=== PATIENT | female | born 1990 | race Caucasian/White ===

== ENCOUNTER 2018-06-16 06:48 | Inpatient (IN) | payer OTHER ==
[2018-06-16] MEDS ORDERED: morphine SULFATE/Preservative Free 0.5 MG/ML (1cc Syringe) ONE (07:34)
[2018-06-16] MEDS ORDERED: ELECTROLYTE-148 SOLN 500 ML IV ONE (07:38)
[2018-06-16] MEDS ORDERED: CITRIC ACID/SODIUM CITRATE 30 ML UNIT-DOSE CUP PO ONE (07:38)
--- NOTE | 2018-06-16 07:46 | HP ---
Past Medical History - Admission Chief Complaint: Labor pain History of Present Illness: 27 yo , @ 38 weeks gestation presents to L&D c/o labor pain. Upon admission she was found to be 5cm dilated with linda breech presentation. Decision made for stat . History Source: Patient Limitations to Obtaining History: No Limitations - Past Medical History ...: 1 ...Para: 0 ...EDC by Sono: 06/29/19 - Past Surgical History Past Surgical History: Yes: None Hx Myomectomy: No Hx Transabdominal Cerclage: No - Alcohol/Substance Use Hx Alcohol Use: No History of Substance Use: reports: None - Social History History of Recent Travel: No Home Medications - Allergies Allergies/Adverse Reactions: Allergies Allergy/AdvReac Type Severity Reaction Status Date / Time No Known Allergies Allergy Verified 06/16/18 07:37 - Home Medications Home Medications: Ambulatory Orders Prenat 115/Iron Fum/Folic/Dss [ 19 Tablet] 1 each PO DAILY 06/16/18 Review of Systems - Review of Systems Constitutional: reports: No Symptoms Eyes: reports: No Symptoms HENT: reports: No Symptoms Neck: reports: No Symptoms Cardiovascular: reports: No Symptoms Respiratory: reports: No Symptoms Gastrointestinal: reports: No Symptoms Genitourinary: reports: Pain Breasts: reports: No Symptoms Reported Musculoskeletal: reports: No Symptoms Integumentary: reports: No Symptoms Neurological: reports: No Symptoms Endocrine: reports: No Symptoms Hematology/Lymphatic: reports: No Symptoms Psychiatric: reports: No Symptoms Pain Intensity: 6 Physical Exam - Maternity Constitutional: Yes: Well Nourished Eyes: Yes: Conjunctiva Clear HENT: Yes: Atraumatic Neck: Yes: Supple Cardiovascular: Yes: Regular Rate and Rhythm Lungs: Clear to auscultation - Abdominal Exam/OB Number of Fetuses: Single Presentation: Vertex - Vaginal Exam/OB Dilatation (cm): 5 Effacement (%): 90 Amniotic Membrane Status: Intact Station: -1 - Physical Exam ...Motor Strength: WNL Psychiatric: Yes: Alert, Oriented Problem List - Problems (1) Breech presentation Code(s): O32.1XX0 - MATERNAL CARE FOR BREECH PRESENTATION, UNSP Qualifiers: Fetus number: single or unspecified fetus Qualified Code(s): O32.1XX0 - Maternal care for breech presentation, not applicable or unspecified (2) 38 weeks gestation of Code(s): Z3A.38 - 38 WEEKS GESTATION OF Assessment/Plan 38 weeks gestation Breech presentation Pre op for primary Consent signed Anesthesia to see patient
[2018-06-16 07:51] VITALS: BMI 27.8
[2018-06-16 07:51] LABS: BASO % 0.3 % (0-2.0); EOS % 1.2 % (0-4.5); HEMATOCRIT 39.9 % (32.4-45.2); LYMPH % 16.1 % (8-40); MCH 34.1 pg (25.7-33.7); MCHC 35.1 g/dl (32.0-36.0); MEAN PLT VOLUME 7.7 fl (7.5-11.1); MONO % 7.4 % (3.8-10.2); PLATELET COUNT 211 K/MM3 (134-434); RBC 4.11 M/mm3 (3.60-5.2); RDW 14.5 % (11.6-15.6); WHITE BLOOD COUNT 7.7 K/mm3 (4.0-10.0)
[2018-06-16] MEDS ORDERED: OXYTOCIN 20 UNITS in 0.9% NS 20 UNIT/1,000 ML INFUS.BAG IV ONE ×2 (08:07→10:11)
[2018-06-16 08:13] LABS: ANION GAP 8 MMOL/L (8-16); BLOOD UREA NITROGEN 13 mg/dL (7-18); CALCIUM 8.7 mg/dL (8.5-10.1); CHLORIDE 107 mmol/L (98-107); CO2 23 mmol/L (21-32); CREATININE 0.4 mg/dL (0.55-1.3); GLUCOSE,RANDOM 72 mg/dL (74-106); POTASSIUM 3.9 mmol/L (3.5-5.1); SODIUM 138 mmol/L (136-145)
[2018-06-16 08:20] LABS: COCAINE, UR NEGATIVE ng/ml (CUTOFF=300); METHADONE, UR NEGATIVE ng/ml (CUTOFF=300); OPIATES, URI NEGATIVE ng/ml (CUTOFF=300); PHENCYCLIDINE,URINE NEGATIVE ng/ml (CUTOFF=25); URINE AMPHETAMINES NEGATIVE ng/ml (CUTOFF=500); URINE BARBITURATES NEGATIVE ng/ml (CUTOFF=200); URINE BENZODIAZEPINES NEGATIVE ng/ml (CUTOFF=200)
[2018-06-16 09:20] LABS: INR 0.92 (0.83-1.09); PROTHROMBIN TIME (PATIENT) 10.9 SEC (9.7-13.0)
[2018-06-16] MEDS ORDERED: METHYLERGONOVINE MALEATE 0.2 MG/1 ML AMP IM PRN (09:32)
--- NOTE | 2018-06-16 09:35 | OP ---
Operative Note - Note: Operative Date: 06/16/18 Pre-Operative Diagnosis: 38 weeks gestation / Breech presentation Operation: Primary Low Transverse Findings: Baby boy in breech position Surgeon: Kenya Martinez Aviation Technician: Gisela Haynes Anesthesia: Spinal Specimens Removed: Placenta Estimated Blood Loss (mls): 600 Operative Report Dictated: Yes
[2018-06-16] MEDS: OXYTOCIN 20 UNITS in 0.9% NS 20 UNIT/1,000 ML INFUS.BAG IV SCH ×2 (10:16→20:14)
[2018-06-16] MEDS: PRENATAL VITAMINS W/ FOLIC ACID TABLET (FP) PO SCH (10:35)
--- NOTE | 2018-06-16 10:40 | OP ---
DATE OF OPERATION: 06/16/2018 PREOPERATIVE DIAGNOSIS: A 38-week gestation with breech presentation. POSTOPERATIVE DIAGNOSIS: A 38-week gestation with breech presentation. PROCEDURE: Primary low transverse section. SURGEON: Kenya Martinez MD BRAND SALES CONSULTANT: Gisela Haynes MD ANESTHESIA: Spinal. COMPLICATIONS: None. ESTIMATED BLOOD LOSS: 600 mL. DESCRIPTION OF PROCEDURE: Patient was taken to the operating room, where spinal anesthesia was administered. Patient was then prepped and draped in proper sterile fashion. A Pfannenstiel skin incision was then made and carried down through the underlying layer of fascia. The fascia was incised in the midline and extended laterally. The superior aspect of the fascial incision was then grasped with Kartik clamps, elevated, and the rectus muscle dissected off bluntly. Attention was then turned to the inferior aspect of the fascial incision, which in a similar fashion was then grasped with Kartik clamps, elevated, and the rectus muscle dissected off bluntly. The rectus muscle was then in the midline. The peritoneum was identified and entered sharply with the Metzenbaum scissors. This incision was extended superiorly and inferiorly with good visualization of the bladder. Then, the vesicouterine peritoneum was then grasped with a pickup and entered sharply with the Metzenbaum scissors. This incision was then extended, and a bladder flap created digitally. The lower uterine segment was incised using a 10 blade. This incision was extended laterally. The buttocks were then delivered. A lap Pad was placed around the hip of the fetus to facilitate delivery of the rest of the body. The baby was turned to a 90-degree angle on each side to allow delivery of the head. Nose and mouth were suctioned, and the cord clamped and cut. The was handed to the awaiting manager presentation. The placenta was removed manually. The uterus exteriorized and cleared of all clots and debris. The uterine incision was repaired using 0 Biosyn in a running locked fashion. A second layer of the same suture was used as a means to provide excellent hemostasis. The pelvis was then completely irrigated. The uterus was returned to the abdomen. The peritoneum was closed using 2-0 Biosyn. The fascia was reapproximated using 0 Vicryl, and the skin was closed with raquel. Patient tolerated the procedure well. Patient was taken to PACU in stable condition. PATHOLOGY: Placenta. Ghada VITAL/[id number] MTDD
[2018-06-16] MEDS ORDERED: ONDANSETRON 4 MG/2 ML VIAL IVPUSH PRN (12:03)
[2018-06-16] MEDS ORDERED: LACTATED RINGERS SOLUTION 1,000 ML IV SCH (12:15)
[2018-06-16] MEDS ORDERED: IBUPROFEN 800 MG/8 ML IJ IVPB PRN (15:57)
[2018-06-16] MEDS: FERROUS SO4 325 MG TABLET (FP) PO SCH (17:18)
[2018-06-17] MEDS: oxyCODONE HCL 5 MG TABLET PO PRN ×3 (05:44→19:25)
[2018-06-17] MEDS: IBUPROFEN 600 MG TABLET (FP) PO PRN ×3 (05:44→19:24)
[2018-06-17] MEDS: SIMETHICONE 80 MG TAB.CHEW (FP) PO PRN ×3 (05:45→19:25)
[2018-06-17 07:44] LABS: BASO % 0.2 % (0-2.0); EOS % 0.7 % (0-4.5); HEMOGLOBIN 11.9 GM/dL (10.7-15.3); LYMPH % 8.4 % (8-40); MCH 33.8 pg (25.7-33.7); MCHC 34.9 g/dl (32.0-36.0); MEAN CELL VOLUME 96.8 fl (80-96); MEAN PLT VOLUME 7.1 fl (7.5-11.1); NEUT % 84.7 % (42.8-82.8); PLATELET COUNT 173 K/MM3 (134-434); RBC 3.51 M/mm3 (3.60-5.2); RDW 14.7 % (11.6-15.6); WHITE BLOOD COUNT 9.1 K/mm3 (4.0-10.0)
--- NOTE | 2018-06-17 08:49 | PN ---
Post Progress Note - Subjective Subjective: c/o pain while walking , scale 7/10 , while in bed , no c/o pain voided urine after cerda is taken out passing flatus Post Day: 1 Type of Delivery: Primary C/S Vital Signs: Vital Signs Temperature 98.0 F 06/17/18 06:00 Pulse Rate 102 H 06/17/18 06:00 Respiratory Rate 18 06/17/18 06:00 Blood Pressure 105/66 06/17/18 06:00 O2 Sat by Pulse Oximetry (%) 100 06/16/18 10:15 Breast Exam: Yes: Soft, Other (BF ). No: Engorged Uterus: Yes: Fundus Firm, Fundus below umbilicus, Non-tender Incision: Yes: Dressing dry and intact. No: Oozing Abdomen/GI: Yes: Abdomen soft (BS active ), Passing flatus, Tolerating PO ( clear fluids ). No: Abdominal Distention, Tender Lochia: Yes: Rubra Lochia, amount: Moderate Extremities: Yes: Calves non-tender Perineum: Yes: Intact Activity: Ambulating - Labs Labs: CBC WBC 9.1 K/mm3 (4.0-10.0) 06/17/18 06:10 RBC 3.51 M/mm3 (3.60-5.2) L 06/17/18 06:10 Hgb 11.9 GM/dL (10.7-15.3) 06/17/18 06:10 Hct 34.0 % (32.4-45.2) 06/17/18 06:10 MCV 96.8 fl (80-96) H 06/17/18 06:10 MCH 33.8 pg (25.7-33.7) H 06/17/18 06:10 MCHC 34.9 g/dl (32.0-36.0) 06/17/18 06:10 RDW 14.7 % (11.6-15.6) 06/17/18 06:10 Plt Count 173 K/MM3 (134-434) 06/17/18 06:10 MPV 7.1 fl (7.5-11.1) L 06/17/18 06:10 Absolute Neuts (auto) 7.7 K/mm3 (1.5-8.0) 06/17/18 06:10 Neutrophils % 84.7 % (42.8-82.8) H 06/17/18 06:10 Lymphocytes % 8.4 % (8-40) D 06/17/18 06:10 Monocytes % 6.0 % (3.8-10.2) 06/17/18 06:10 Eosinophils % 0.7 % (0-4.5) 06/17/18 06:10 Basophils % 0.2 % (0-2.0) 06/17/18 06:10 Nucleated RBC % 0 % (0-0) 06/17/18 06:10 Other Findings, Remarks: rs cta i/o adequate Problem List - Problems (1) delivery delivered Code(s): O82 - ENCOUNTER FOR DELIVERY WITHOUT INDICATION (2) Encounter for care after hospital delivery Code(s): Z39.2 - ENCOUNTER FOR ROUTINE FOLLOW-UP Assessment/Plan stable . plan :ct ambulation, deep breathing, po fluids
[2018-06-17] MEDS ORDERED: BISACODYL 10 MG SUPP.RECT RC PRN (09:32)
[2018-06-17] MEDS: FERROUS SO4 325 MG TABLET (FP) PO SCH ×2 (09:43→18:20)
[2018-06-17] MEDS: PRENATAL VITAMINS W/ FOLIC ACID TABLET (FP) PO SCH (09:44)
[2018-06-17] MEDS ORDERED: FLU VACCINE QUAD 60 MCG/0.5 ML (MDV 18-19) IM ONE (10:00)
[2018-06-17] MEDS ORDERED: DIPHTH,PERTUSS(ACELL),TET 0.5 ML DISP.SYRIN IM ONE (10:00)
[2018-06-18] MEDS: oxyCODONE HCL 5 MG TABLET PO PRN ×4 (06:11→23:15)
[2018-06-18] MEDS: SIMETHICONE 80 MG TAB.CHEW (FP) PO PRN ×4 (06:11→23:16)
[2018-06-18] MEDS: IBUPROFEN 600 MG TABLET (FP) PO PRN ×4 (06:11→23:15)
[2018-06-18] MEDS: FERROUS SO4 325 MG TABLET (FP) PO SCH ×2 (08:00→18:16)
[2018-06-18] MEDS: PRENATAL VITAMINS W/ FOLIC ACID TABLET (FP) PO SCH (10:00)
--- NOTE | 2018-06-19 07:21 | PN ---
Progress Note (short form) - Note Progress Note: pod s/p c/s ,doing well, no c/o , passing gas CBC, BMP 06/17/18 06:10 06/16/18 07:30 Last Vital Signs Temp Pulse Resp BP Pulse Ox 98.1 F 98 H 18 118/74 100 06/18/18 22:00 06/18/18 22:00 06/18/18 22:00 06/18/18 22:00 06/16/18 10:15 abdomen soft, nodistension, no cva incision dry, clean no calf tenderness plan ambulate, cbc in am
[2018-06-19] MEDS: FERROUS SO4 325 MG TABLET (FP) PO SCH (08:05)
[2018-06-19 08:17] LABS: BASO % 0.2 % (0-2.0); EOS % 2.3 % (0-4.5); HEMOGLOBIN 11.3 GM/dL (10.7-15.3); LYMPH % 14.4 % (8-40); MCH 34.9 pg (25.7-33.7); MCHC 35.1 g/dl (32.0-36.0); MEAN CELL VOLUME 99.2 fl (80-96); MEAN PLT VOLUME 7.4 fl (7.5-11.1); MONO % 5.9 % (3.8-10.2); NEUT % 77.2 % (42.8-82.8); PLATELET COUNT 209 K/MM3 (134-434); RBC 3.23 M/mm3 (3.60-5.2); RDW 14.8 % (11.6-15.6); WHITE BLOOD COUNT 6.7 K/mm3 (4.0-10.0)
[2018-06-19 08:25] VITALS: BP 117/66; PULSE 75; TEMP 98
[2018-06-19] MEDS: PRENATAL VITAMINS W/ FOLIC ACID TABLET (FP) PO SCH (09:09)
--- NOTE | 2018-06-19 10:00 | DS ---
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 Signs: Vital Signs Temperature 98 F 06/19/18 07:10 Pulse Rate 75 06/19/18 07:10 Respiratory Rate 20 06/19/18 07:10 Blood Pressure 117/66 06/19/18 07:10 O2 Sat by Pulse Oximetry (%) 100 06/16/18 10:15 Constitutional: Yes: Well Nourished, No Distress, Calm Eyes: Yes: WNL, Conjunctiva Clear, EOM Intact HENT: Yes: WNL, Atraumatic, Normocephalic Neck: Yes: WNL, Supple, Trachea Midline Cardiovascular: Yes: WNL, Regular Rate and Rhythm Respiratory: Yes: WNL, Regular, CTA Bilaterally Gastrointestinal: Yes: WNL ...Rectal Exam: Yes: WNL Renal/: Yes: WNL ....Post : Yes: Uterus firm, Uterus non-tender, Slight lochia rubra Breast(s): Yes: WNL Musculoskeletal: Yes: WNL Extremities: Yes: WNL Integumentary: Yes: WNL Wound/Incision: Yes: Clean/Dry, Well Approximated, Sutures Intact Neurological: Yes: WNL, Alert, Oriented ...Motor Strength: WNL Psychiatric: Yes: WNL, Alert, Oriented Labs: CBC, BMP 06/19/18 07:00 06/16/18 07:30 Delivery - Delivery Section: Primary, Low Flap Transverse Type of Anesthesia: Spinal Episiotomy/Laceration: None EBL (cc): 600 Delivery, Single - Stages of Labor Date 1st Stage Initiatied: 06/16/18 Time 1st Stage Initiated: 00:00 Date of Delivery: 06/16/18 Time of Delivery: 08:31 Time Placenta Delivered: 08:32 Placenta: Yes: Expressed - 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 Utility Present: Yes Name: Judy Petersen Gender: Male Weight: 7 lb 7 oz Total Hours ROM (Hrs/Mins): 2min - 1 Minute Total Score: 9 5 Minutes Total Score: 9 - [place] Feeding Plan Initial Plan: Elected not to breastfeed exclusively throughout hospitalization Discharge Summary Reason For Visit: CSECTION Current Active Problems 38 weeks gestation of (Acute) Breech presentation (Acute) delivery delivered (Acute) Encounter for care after hospital delivery (Acute) Procedures: Principal: primary LST c/s for breech in labor - Instructions Diet, Activity, Other Instructions: regular diet, no intercourse , follow up [facility] 1 week, if fever pain, heavy vaginal bleeding call MD - Home Medications Comprehensive Discharge Medication List: Ambulatory Orders Prenat 115/Iron Fum/Folic/Dss [ 19 Tablet] 1 each PO DAILY 06/16/18
--- NOTE | 2018-06-26 15:12 | PATH ---
Surgical Pathology Report Patient Name: REYMUNDO ROWE [facility]. Rec. #: [id number] /Age/Gender: 1990 (Age: 27) / F Account: [id number] Location: 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 Specimen(s) Received PLACENTA Clinical History at 38.2 weeks, breech presentation in labor Final Diagnosis PLACENTA, SECTION: 369 G THIRD TRIMESTER PLACENTA WITH TRIVASCULAR UMBILICAL CORD AND FOCAL MILD ACUTE CHORIOAMNIONITIS. Electronically Signed Mindi Colunga M.D. Gross Description The specimen is received fresh labeled placenta and is a 369 gram, 15.5 x 13.0 x 2.8 cm. placenta with attached membranes and umbilical cord. The attached membranes are tristan, translucent with focal opacities and insert marginally. The umbilical cord measures 26 cm. in length and averages 1.0 cm. in diameter. The cord inserts at the margin. No true knots or strictures are identified. Cut surface of the umbilical cord reveals 3 vessels. The surface is morrison-blue with minimal fibrin deposition and appropriate caliber vessels. The maternal surface is red-brown with focal defects. Sectioning reveals red-brown, spongy parenchyma. No lesions are identified. Litigation Assistant sections are submitted in three cassettes as follows: 1- membrane rolls and umbilical cord; 2-3- full thickness sections of placenta. 06/25/2018 [facility]06/25/2018
== END 2018-06-19 11:35 | disposition home or self-care (01) | DRG 540 ==
LOC: JDEL 06:48 → JLDR 07:05 → J3W 11:13
PROVIDERS: ADMIT Obstetrics & Gynecology; ATTEND Obstetrics & Gynecology
PROC: 10D00Z1 Extraction of Products of Conception, Low, Open Approach (ICD-10-PCS; principal; 2018-06-16)
DX: O32.1XX0 Maternal care for breech presentation, not applicable or unspecified (principal); Z3A.38 38 weeks gestation of pregnancy; Z37.0 Single live birth
CPT/HCPCS: 36415; 80048; 80307; 85025; 85610; 85730; 86593; 86850; 86900; 86901; 88307-TC; 90686; 90715; G0008